=== PATIENT | female | born 1995 | race Caucasian/White ===

== ENCOUNTER 2022-01-14 10:33 | Emergency (ER) | payer OTHER, SELFPAY ==
[2022-01-14 10:48] VITALS: BP 143/68; PULSE 81; RESP 17; TEMP 35.7; O2SAT 100; BMI 23.8
== END 2022-01-14 15:13 | disposition left against medical advice (07) ==
PROVIDERS: Emergency Provider Emergency Medicine
DX: Z04.1 Encounter for examination and observation following transport accident (principal); O26.851 Spotting complicating pregnancy, first trimester; Z3A.12 12 weeks gestation of pregnancy
CPT/HCPCS: 99281; 99282

== ENCOUNTER 2022-01-14 18:42 | Emergency (ER) | payer OTHER, SELFPAY ==
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
[2022-01-14 19:12] VITALS: BP 118/79; PULSE 88; RESP 18; TEMP 36.1; O2SAT 100; BMI 23.8
[2022-01-14 19:36] LABS: MANUAL DIFF FLAG NO
[2022-01-14 19:39] LABS: Basophils Percent Auto 0.2 % (0-2); Eosinophils Absolute Auto 0.1 X10*3/uL (0.0-0.4); Eosinophils Percent Auto 1.2 % (0-4); Hematocrit 33.1 % (37.0-47.0); Hemoglobin 11.3 g/dl (12.0-16.0); Imm Gran Abs Auto 0.02 X10*3/uL (0.00-0.03); Imm Gran Pct Auto 0.2 % (0.0-0.4); Lymphocytes Absolute Auto 2.1 X10*3/uL (1.2-4.9); Lymphocytes Percent Auto 24.2 % (20-40); Mean Corpuscular HGB Conc 34.1 g/dl (31.0-35.0); Mean Corpuscular Hemoglobin 30.2 pg (27.0-33.0); Mean Corpuscular Volume 88.5 fL (80.0-98.0); Mean Platelet Volume 10.3 fL (9.4-12.3); Monocytes Absolute Auto 0.4 X10*3/uL (0.1-1.2); Monocytes Percent Auto 4.3 % (2-11); Neutrophils Percent Auto 69.9 % (45-73); Platelet Count 216 X10*3/uL (160-400); Red Blood Count 3.74 X10*6/uL (4.20-5.50); White Blood Count 8.6 X10*3/uL (4.8-10.8)
[2022-01-14 19:39] LABS: Appearance Urine CLEAR; Color Urine YELLOW; Glucose Urine UA NEG (NEG); Leukocyte Esterase Urine NEG (NEG); Nitrite Urine NEG (NEG); PH 6.5 (5.0-8.0); Specific Gravity - Urine 1.025 (1.005-1.025); Urine Blood NEG (NEG); Urine Ketones 5 MG/DL (NEG); Urine Protein NEG (NEG-TRACE)
[2022-01-14 19:51] LABS: Alanine Aminotransferase 7 U/L (0-31); Albumin Level 3.8 g/dL (3.5-5.0); Alkaline Phosphatase 62 U/L (39-117); Anion Gap 11 (12-20); Aspartate Amino Transferase 14 U/L (5-31); Bilirubin Total 0.5 mg/dL (0.0-1.0); Blood Urea Nitrogen 8 mg/dL (9-16); Carbon Dioxide 25 mmol/L (22-29); Chloride 105 mmol/L (96-108); Creatinine Clr Calc Pharmacy 91.5; Estimated Glomerular Filt Rate > 60; Glucose Random 97 mg/dL (60-115); Potassium 3.3 mmol/L (3.3-5.1); Sodium 138 mmol/L (135-145); Total Protein 7.2 g/dL (6.5-8.0)
[2022-01-14 20:00] LABS: UPreg QC Valid YES; Urine Pregnancy POSITIVE (NEGATIVE)
[2022-01-15 01:55] VITALS: BP 112/63; PULSE 77; RESP 17; TEMP 36.7; O2SAT 99
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
== END 2022-01-15 02:50 | disposition home or self-care (01) ==
PROVIDERS: Emergency Provider Emergency Medicine Emergency Medical Services
DX: O20.0 Threatened abortion (principal); O9A.211 Injury, poisoning and certain other consequences of external causes complicating pregnancy, first trimester; S13.4XXA Sprain of ligaments of cervical spine, initial encounter; O09.291 Supervision of pregnancy with other poor reproductive or obstetric history, first trimester; Z3A.12 12 weeks gestation of pregnancy; V89.2XXA Person injured in unspecified motor-vehicle accident, traffic, initial encounter; Y93.9 Activity, unspecified; Y92.410 Unspecified street and highway as the place of occurrence of the external cause; Y99.9 Unspecified external cause status
CPT/HCPCS: 36415; 76815; 80053; 81003; 81025; 84702; 85025; 99283; 99284

== ENCOUNTER 2024-05-23 10:50 | Outpatient (RCR) | payer MEDICAID, SELFPAY ==
--- NOTE | 2024-05-28 10:00 | MHC.SP.ADU ---
Referring provider: Ruben Maddox MD Reason for Referral: vocal cord nodules Type of Treatment: 98656 Behavioral and Qualitative Analysis of Voice and Resonance Date of Plan of Treatment: 05/23/24 Onset of Symptoms/Illness: 09/11/19 Date Treatment Started: 05/23/24 Medical Diagnosis: vocal cord nodules Primary Speech Language Diagnosis: R49.0 Dysphonia History Norberto is a 28 year old female referred for speech therapy by Ruben Maddox MD, with [facility] with diagnoses of vocal cord nodules. Norberto was most recently seen at this facility and at [facility] in December for both a tonsillectomy and direct laryngoscopy. Vocal cord nodules were reported following these procedures. Norberto reports that she loses her voice nearly every day and ?sounds like a man? by the end of the day. Norberto reports that she gets a sore throat 1-2 times per week that causes discomfort when swallowing, especially on the right side. Medical History: Asthma Bronchitis Vocal Polyps/Nodules Voice Changes Respiratory Needs: Room Air Patient Orientation: Alert & Oriented x 4 Social History: Employment Status: [employer] Highest level of education obtained: Some college Assistive Devices in use: Glasses/Contacts Past Speech Language Therapy: None reported Other Therapies Seen in Current Calendar Year: None Other: None reported Swallowing History: Dysphagia Specific: Comments: Norberto reports discomfort swallowing, particularly on the right side, when experiencing sore throats. This is reported to occur 1-2x/week. Reported Speech, Language, Cognition difficulties: Voice Swallowing Assessment RESULTS: Boones vocal quality as well as her perception of her voice was analyzed during today?s evaluation through measures including patient interview, questionnaires, conversation samples, and vocal exercises. Boones voice was perceived to be mildly hoarse during the visit by this clinician. Norberto reports that her voice was mildly-moderately hoarse during the visit. She was not observed to produce any cough or throat clearing behavior. Informal Voice Assessment: Voice Loudness: Normal Voice Phonatory-based Quality: Hoarse Voice Pitch: Mildly Low Patient History & Vocal Hygiene Interview In an interview largely regarding vocal hygiene, Norberto reported the following: -48 to 60 oz of water per day -No caffeine or smoking -Minimal alcohol and chocolate -Approximately 4 hours of sleep per night -Frequent throat clearing (especially in morning), coughing (dry cough), loud talking, conversational talking, and talking in noisy environments (3x/week) -Occasional yelling/screaming and talking for prolonged periods of time -Vocal quality worse with more talking and towards the end of the day -Vocal rest does not appear to improve vocal quality Voice Handicap Index (VHI) The VHI is a questionnaire in which an individual answers questions regarding functional, emotional, and physical components of their voice to provide insight into their perception of their own voice. Functional questions provide insight into the impact of their voice on daily activities; i.e. ?I speak with friends, neighbors, or relatives less often because of my voice.? Emotional questions provide insight into the individual?s feelings regarding their voice; i.e. ?My voice problem upsets me.? Physical questions provide insight into the individual?s physical discomfort and characteristics of voice; i.e. ?I use a great deal of effort to speak.? Responses to questions include never, almost never, sometimes, almost always, and always. Norberto?s Z-score was computed to be 3.56. A score of +3.00 or greater indicates ?severe significant impact on aspects of daily life.? Norberto?s responses indicate that the most significant impact on her daily life are the physical components of voice, followed by functional, and lastly emotional. Voice-Related Quality of Life (V-RQOL) Measure The V-RQOL is a questionnaire completed by an individual to analyze their outlook on their voice problem as it relates to their daily activities and overall quality of life. There are ten statements to which an individual subscribes a score to each from 1 to 5 (1=not a problem, 5=?as bad as it can be?) to describe how much of a problem that particular statement has been within the past two weeks. Norberto scored 28 on the questionnaire, which is considered to be ?fair to good? in regards to the effect on one?s quality of life. S:Z Ratio The S:Z Ratio is not diagnostic of laryngeal pathology: it is merely a measurement of one?s ability to sustain the voiceless sound [S] in comparison to sustaining the voiced sound [Z] cognate. For the majority of people with no difficulties affecting their vocal folds are typically able to sustain both the voiceless [S] and voiced [Z] sounds for approximately the same length of time during the S:Z task, thus producing a 1:1 ratio. 95% of people who have some difficulty affecting the movement or vibration of their vocal folds have an S:Z ratio of greater than 1.40. Conversely, a S:Z ratio of less than 1.0 suggests functional dysphonia in the absence of laryngeal pathology (Mayra & Johnathan, 1981).? Across three trials, Norberto produced the following on the S:Z prolongation averages: S = 8.1 seconds Z = 7.03 seconds Ratio: 1.15 Norms: Mean S= 17.7 seconds (Standard deviation = 7.6 seconds); Mean Z=18.6 seconds (Standard deviation = 7.0 seconds) (Mayra & Johnathan 1981 in Tad et. al. 1987) Zunomy?s S:Z ratio of less 1.15 in itself is not suggestive of laryngeal pathology, however Norberto was referred by the ENT who has already visualized vocal nodules are present. The length of her [S] and [Z] sound prolongations are greater than 1 standard deviation from the mean based on normative data provided above. Norberto had a noticeably harder time producing /z/ as compared to /s/. At times, the production of /z/ appeared similar to /s/ as if she was not maintaining the voice necessary to produce the /z/ sound. Maximum Phonation Time (MPT): [a] prolongation: range: 7.33-9.25 seconds, mean = 8.14 seconds When prompted to produce a prolonged ?AHH? ([a] prolongation), Norberto initially produced a strong vocal quality that quickly became softer and eventually strained. The strained vocal quality was more prevalent in the second and third trials. Compared to normative data of adult females, Norberto?s maximum phonation time of [a] (?AHH?) is approximately 3x less. Norberto produced a mean maximum phonation time of 8.14 seconds compared to the average time of 25.7 seconds (Tad et. al., 1987). Reflux Symptom Index (RSI): The RSI is a questionnaire in which an individual answers several questions regarding symptoms of reflux. A score of 13 or greater may indicate significant reflux. Norberto scored 25. Impressions and Recommendations Summary: Norberto presents with a minimally hoarse voice during today?s evaluation with her performance on some tasks demonstrating difficulty with respiratory efficiency. Vocal nodules have been visualized by the ENT. It is recommended that Zunomy attend weekly 1:1 voice therapy for 6 weeks to provide education to improve vocal hygiene and exercises to support improvement of vocal quality and respiratory efficiency. Impact on Daily Function/Activity Limitations: Daily Activities: Moderate Interpersonal Interactions: Moderate Employment: Mild Prognosis for Improvement: Good Recommendation for Speech Therapy: It is recommended that Zunomy attend weekly 1:1 voice therapy for 6 weeks to provide education to improve vocal hygiene and exercises to support improvement of vocal quality and respiratory efficiency. Frequency/Duration: 1x/week x 6 weeks [employer]works Assembly Supervisor Goals: LTG 1: Zunomy will participate in further testing to better inform goals LTG 2: Zunomy will improve vocal hygiene LTG 2: Zunomy will improve respiratory efficiency Short Term Goals: STG 1.1: Zunomy will participate in an oral motor exam with 100% completion due to self-report of oral motor weakness on the patient intake form Goal Status: New Goal STG 2.1: Zunomy will independently recall 3+ environmental modifications to improve vocal hygiene. STG 2.2: When given a scenario, Debra will independently discriminate between healthy vocal use and vocal misuse/abuse with 80% accuracy STG 2.3: Zunomy will track vocal hygiene with daily log to support improvement of vocal hygiene in at least 4 days per week Goal Status: New Goal STG 3.1: Zunomy will accurately demonstrate diaphragmatic breathing in 100% of trials with minimal cueing. STG 3.2: Zunomy will sustain vowel prolongation for 15 seconds in 80% of opportunities Goal Status: New Goal Recommended Referrals to be Discussed with Primary Care Provider: GI Consult It is recommended that Zunomy be referred for a GI consultation due to suspicion of reflux. Zunomy scored 25 on the Reflux Symptom Index (RSI). A RSI score of 13 or greater may be indicative of significant reflux. Patient Education: Completed: Yes Patient/Caregiver Education: Described Results of Evaluation Patient expressed understanding of evaluation Patient agrees with goals and treatment plan Master Rigger Clinican/Clinical Fellow: No Supervisory Statement: N/A Speech Language Pathologist: Jelly Chase M.A., CCC-LEARNING SUPPORT SERVICES DIRECTOR
== END 2024-10-17 15:09 | disposition home or self-care (01) ==
LOC: HO.SH 10:50
PROVIDERS: PCP Physician Assistant; Visit Provider Otolaryngology
DX: R49.0 Dysphonia (principal); J38.2 Nodules of vocal cords
CPT/HCPCS: 92524